=== PATIENT | female | born 1990 | race American Indian/Alaskan Native ===

== ENCOUNTER 2018-07-04 18:29 | Emergency (ER) | payer OTHER ==
[2018-07-04 18:33] VITALS: BP 123/86; PULSE 92; RESP 18; TEMP 98.6; O2SAT 100
[2018-07-04 19:09] LABS: SQUAMOUS EPITHIAL 8 /hpf (0-5); URINE BACTERIA RARE (<OCC); URINE BILIRUBIN NEGATIVE (NEGATIVE); URINE BLOOD NEGATIVE (NEGATIVE); URINE CLARITY Hazy (Clear); URINE COLOR Yellow (YELLOW); URINE GLUCOSE (UA) NORMAL (Normal); URINE LEUKOCYTE ESTERASE NEG Leu/uL (Negative); URINE PROTEIN NEGATIVE (NEGATIVE); URINE UROBILINOGEN NORMAL mg/dL (0.2-1.0)
[2018-07-04 19:10] LABS: HCG,QUALITATIVE URINE POSITIVE (NEGATIVE)
[2018-07-04] MEDS ORDERED: Sodium Chloride 0.9% 1,000 ML IV ONE (19:27)
[2018-07-04] MEDS ORDERED: DiphenhydrAMINE 50 mg/ml Inj IVP STA (19:28)
--- NOTE | 2018-07-04 19:37 | C.PDOC ---
History Of Present Illness 28 y/o female presents to the ED complaining of left sided lower back pain radiating down her left leg. Notes the pain is intermittent but recently more persistent. Worse with movement. Denies any injury, incontinence, numbness or weakness. The patient also reports she is 8 weeks and started having vomiting today. Denies fever, back pain, abdominal pain, vaginal bleeding or discharge. Pt saw her OB last week. Time Seen by Provider: 07/04/18 18:45 Chief Complaint (Nursing): Back Pain History Per: Patient History/Exam Limitations: no limitations Onset/Duration Of Symptoms: Days Current Symptoms Are (Timing): Still Present Quality Of Discomfort: "Pain" Previous Symptoms: Back Pain Recent travel outside of the [place]: No Past Medical History Reviewed: Historical Data, Nursing Documentation, Vital Signs Vital Signs: Last Vital Signs Temp 98.6 F 07/04/18 18:32 Pulse 92 H 07/04/18 18:32 Resp 18 07/04/18 18:32 BP 123/86 07/04/18 18:32 Pulse Ox 100 07/04/18 20:27 - Medical History PMH: No Chronic Diseases Surgical History: No Surg Hx Family History: States: Unknown Family Hx - Social History Hx Alcohol Use: No Hx Substance Use: No - Immunization History Hx Tetanus Toxoid Vaccination: No Hx Influenza Vaccination: No Hx Pneumococcal Vaccination: No Review Of Systems Except As Marked, All Systems Reviewed And Found Negative. Constitutional: Negative for: Fever, Chills Cardiovascular: Negative for: Chest Pain Gastrointestinal: Positive for: Nausea, Vomiting Genitourinary: Negative for: Incontinence Musculoskeletal: Positive for: Back Pain (left lower back pain), Leg Pain (left left pain) Skin: Negative for: Bruising Neurological: Negative for: Weakness, Numbness Physical Exam - Physical Exam Appears: Well, Non-toxic, No Acute Distress Skin: Normal Color, Warm Head: Atraumatic, Normacephalic Eye(s): bilateral: Normal Inspection, EOMI Nose: Normal Oral Mucosa: Moist Neck: Normal ROM, Supple Chest: Symmetrical Cardiovascular: Rhythm Regular Respiratory: Normal Breath Sounds, No Accessory Muscle Use, No Rales, No Rhonchi , No Wheezing Gastrointestinal/Abdominal: Soft, No Tenderness, No Distention Back: No CVA Tenderness, No Vertebral Tenderness, Other (left paralumbar tenderness) Extremity: Normal ROM, Capillary Refill (<2 seconds), No Deformity, No Swelling Extremity: Bilateral: Normal Color And Temperature, Normal ROM Pulses: Left Dorsalis Pedis: Normal, Right Dorsalis Pedis: Normal Neurological/Psych: Oriented x3, Normal Speech, Normal Sensation ED Course And Treatment O2 Sat by Pulse Oximetry: 100 (RA) Pulse Ox Interpretation: Normal Progress Note: CMP, UA and HCG ordered. Benadryl 25 mg IV, Reglan 10 mg IV, IV fluids refused by patient. In ED, gave patient Zofran 4 mg PO, as per pt request. 2009- On reassessment, patient is resting comfortably and requesting to go home. Patient remains afebrile, with no bony tenderness, extremity numbness or weakness. Tolerating PO. Patient is ambulatory in the emergency department with no signs of discomfort. Patient was advised to follow up with physician/clinic in 1-2 days. Disposition - Disposition Disposition: HOME/ ROUTINE Disposition Time: 18:45 Condition: STABLE Additional Instructions: Follow up with your primary medical doctor or clinic in 2-5 days for further evaluation. Take medications as prescribed. Return to the emergency department at any time if symptoms persist or worsen. Prescriptions: Acetaminophen [Tylenol 325mg tab] 650 mg PO Q4 PRN #20 tab PRN Reason: Pain, Mild (1-3) Instructions: Sciatica (DC) Forms: [employer] ([place]) - Clinical Impression Clinical Impression: Sciatica - PA / [employer] / Resident Statement MD/DO has reviewed & agrees with the documentation as recorded. - Scribe Statement The provider has reviewed the documentation as recorded by the Scribe (Yu Wells) All medical record entries made by the Scribe were at my direction and personally dictated by me. I have reviewed the chart and agree that the record accurately reflects my personal performance of the history, physical exam, medical decision making, and the department course for this patient. I have also personally directed, reviewed, and agree with the discharge instructions and disposition.
== END 2018-07-04 20:13 | disposition home or self-care (01) ==
LOC: C.ER 18:29
DX: O26.891 Other specified pregnancy related conditions, first trimester (principal); M54.30 Sciatica, unspecified side; Z3A.08 8 weeks gestation of pregnancy